=== PATIENT | male | born 1950 | race Caucasian/White ===

== ENCOUNTER 2020-08-31 19:38 | Observation (INO) | payer OTHER ==
[~2020-08-31] VITALS: Ht 182.9 cm; Wt 82.5 kg
--- NOTE | 2020-08-31 19:38 | NUR ---
PT TO ROOM 13 BY EMS FOR CHEST PAIN THAT STARTED ABOUT 1915. PT WAS GETTING READY TO WALK HIS DOG WHEN PAIN BEGAN.. STATES RADIATED ACROSS ENTIRE CHEST AND FELT TINGLING IN B/L ARMS. PT TOOK OWN NTG SL WITH RELIEF BY THE TIME EMS ARRIVED/ PT HAS CARDIAC HISTORY OF STENTS AND CABG
--- NOTE | 2020-08-31 20:00 | NUR ---
Reassessment of patient completed. No distress noted.
[2020-08-31 20:29] LABS: HEMATOCRIT 36.8 % (39.0-50.0); HEMOGLOBIN 12.2 g/dl (14.0-18.0); IMMATURE GRANULOCYTES 0.2 % (0.0-5.0); MEAN CELL VOLUME 90.4 fL CALC (80.0-100.0); MEAN CORPUSCULAR HGB CONC 33.2 g/dL CAL (32.0-36.0); NEUT# 3.36 thou/uL (1.82-7.42); RED BLOOD COUNT 4.07 mill/uL (4.70-6.10); RED CELL DISTRI WIDTH 13.3 % (11.5-15.5)
[2020-08-31 20:41] LABS: ACT PARTIAL THROMBO TIME 27.8 SECONDS (20.0-32.5); INTERNATIONAL NORMALIZED RATIO 1.2 RATIO (0.7-1.3); PROTHROMBIN TIME 12.3 SECONDS (9.0-12.5)
[2020-08-31] MEDS ORDERED: ATORVASTATIN CA80 MG PO (20:52)
[2020-08-31] MEDS ORDERED: AMLODIPINE BESY10 MG PO (20:52)
[2020-08-31] MEDS ORDERED: BUSPIRONE5 MG PO (20:53)
[2020-08-31 20:54] LABS: D-DIMER 0.67 mg/L (0.19-0.60)
[2020-08-31] MEDS ORDERED: VITAMIN D PO (20:55)
[2020-08-31] MEDS ORDERED: CLONIDINE0.1 MG PO (20:55)
[2020-08-31] MEDS ORDERED: PLAVIX75 MG PO (20:56)
[2020-08-31] MEDS ORDERED: FINASTERIDE5 MG PO (20:58)
[2020-08-31] MEDS ORDERED: CYMBALTA60 MG PO (20:58)
[2020-08-31 20:59] LABS: ALBUMIN 3.8 g/dL (3.2-5.0); ALKALINE PHOSPHATASE 65 u/l (38-126); ANION GAP 12 (6-22 (CALC)); BILIRUBIN, TOTAL 0.9 mg/dL (0.0-1.4); BUN 23 mg/dL (8-23); BUN/CREATININE RATIO 20 (12-20 (CALC)); CARBON DIOXIDE 29 mmol/l (22-30); CHLORIDE 99 mmol/l (95-108); CREATININE 1.1 mg/dL (0.7-1.3); GFR > 60 ML/MIN (>=60 (CALC)); GFR FOR AFR.AMER. > 60 ML/MIN (>=60 (CALC)); SGOT/AST 20 u/l (19-48); SODIUM 136 mmol/l (137-146); TOTAL PROTEIN 6.6 g/dL (6.3-8.2)
[2020-08-31] MEDS ORDERED: GABAPENTIN100 MG PO (20:59)
[2020-08-31] MEDS ORDERED: ISOSORB MONO30 MG PO (21:00)
[2020-08-31] MEDS ORDERED: GLIPIZIDE5 M2 PO (21:00)
[2020-08-31] MEDS ORDERED: LISINOPRIL30 MG PO (21:01)
[2020-08-31] MEDS ORDERED: METFORMIN500 M2 PO (21:01)
--- NOTE | 2020-08-31 21:01 | NUR ---
Reassessment of patient completed. No distress noted.
[2020-08-31] MEDS ORDERED: METOPROL TAR25 MG PO (21:02)
[2020-08-31] MEDS ORDERED: NAPROXEN250 MG PO (21:02)
[2020-08-31] MEDS ORDERED: K-TAB20 MEQ PO (21:03)
[2020-08-31] MEDS ORDERED: TAMSULOSIN HCL0.4 MG PO (21:04)
[2020-08-31 21:10] LABS: MYOGLOBIN 46 ng/mL (0 - 121)
--- NOTE | 2020-08-31 22:02 | NUR ---
W/P/D SKIN DENIES CP OR PAIN OF ANY ORIGIN SR NO ST T CHANGES NO ECTOPY
--- NOTE | 2020-08-31 23:10 | NUR ---
SRT NO ST T CHANGES NO ECTOPY NO SOB. PHONE REPORT TO NURSE LARISA ON MS[facility]
--- NOTE | 2020-08-31 23:15 | NUR ---
[id number]
[2020-08-31 23:57] VITALS: BP 174/89
--- NOTE | 2020-09-01 00:47 | NUR ---
PATIENT ADMITTED FROM ER VIA WHEELCHAIR WITH ER STAFF IN ATTENDANCE. PATIENT ABLE TO TRANSFER FROM WHEELCHAIR TO BED INDEPENDANTLY. PATIENT IS AWAKE ALERT AND ORIENTEDX3. PATIENT WITH NO COMPLAINTS OF PAIN AT THIS TIME. PATIENT ADMITTED FOR CHEST PAIN. STATES THAT HE TOOK THE DOG OUT AFTER DINNER AND DEVELOPED SEVERE TIGHTNESS IN HIS CHEST WELL NUMBNESS IN BOTH ARMS. WAS ABLE TO GET BACK TO THE AND CALL 911. TOOK NITRO AND SX WERE RESOLVED. PATIENT WITH EXTENSIVE CARDIAC HX, INCLUDING CABG AND STENTS. ALSO WITH HTN, DIAB, BPH AND DEPRESSION, ANXIETY. SNOWBIRD FROM [facility] WITH . DENIES ANY ALLERGIES. TELE MONITOR IN PLACE. LUNGS ARE CLEAR. NO PERIPERAL EDEMA NOTED. SALINE LOCK TO LAC INTACT-GOOD BLOOD RETURN. SITE IS HEALTHY. ORIENTED PATIENT TO ROOM AND SURROUNDINGS. INSTRUCTED ON USE OF NURSE CALL LIGHT SYSTEM TV REMOTE AND PHONE. SAFETY PRECAUTIONS REINFORCED. CALL LIGHT IN REACH. WILL CONT TO MONITOR.
--- NOTE | 2020-09-01 04:09 | NUR ---
PATIENT RESTING IN BED AT THIS TIME-NO COMPLAINTS AT THIS TIME. LAST TROP DRAWN WAS NEGATIVE. TELE MONITOR IN PLACE. SALINE LOCK TO LAC INTACT. SAFETY PRECAUTIONS REINFORCED. CALL LIGHT IN REACH. WILL CONT TO MONITOR.
[2020-09-01 06:01] VITALS: BP 145/85
[2020-09-01 07:25] VITALS: BP 142/85
--- NOTE | 2020-09-01 07:25 | NUR ---
PATIENT RESTING IN BED AT THIS TIME. INFRASTRUCTURE DIRECTOR DONE AT THIS TIME SEE INTERVENTIONS. PATIENT DENIES ANY CHEST PAIN AND STATED "I FEEL GOOD". LUNG SOUNDS ARE CLEAR AND PATIENT DENIES ANY OTHER NEEDS. TELE MONITOR IN PLACE AND AND BEING MONITORED BY ED. SIDERAILS ARE UP CALL LIGHT WITHIN REACH WELL PERSONAL ITEMS.
[2020-09-01 10:32] VITALS: BP 131/76
--- NOTE | 2020-09-01 11:57 | NUR ---
PATIENT D/C AT THIS TIME PATIENT VERBALIZED UNDERSTANDING OF D/C INSTRUCTIONS AT THIS TIME.
--- NOTE | 2020-09-01 12:07 | NUR ---
Discharge instructions given. Patient verbalizes understanding of same. Discharged in stable condition via Wheelchair to Home with family. All belongings sent with pt.
== END 2020-09-01 12:06 | disposition home or self-care (01) | DRG 313 ==
LOC: ED 19:38 → ED-I 19:52 → ED 19:52 → ED-I 21:31 → ED 21:52 → MS2 21:53
PROVIDERS: Family Medicine; ADMIT Internal Medicine; ATTEND Internal Medicine
DX: R07.2 Precordial pain (principal); I10 Essential (primary) hypertension; E11.9 Type 2 diabetes mellitus without complications; I25.10 Atherosclerotic heart disease of native coronary artery without angina pectoris; F32.9 Major depressive disorder, single episode, unspecified; Z79.84 Long term (current) use of oral hypoglycemic drugs; Z95.1 Presence of aortocoronary bypass graft; Z95.5 Presence of coronary angioplasty implant and graft; Z20.822 Contact with and (suspected) exposure to COVID-19
CPT/HCPCS: J1650; Q9967